=== PATIENT | female | born 1965 | race Two or more races ===

== ENCOUNTER 2018-06-16 12:39 | Emergency (ER) | payer BC, OTHER ==
[~2018-06-16] VITALS: Ht 149.9 cm; Wt 73.9 kg
[2018-06-16] MEDS ORDERED: LORazepam 0.5 MG TAB PO ONE (13:30)
[2018-06-16 13:43] LABS: Basophils # (auto) 0 uL; Basophils % (auto) 0.6 % (0.0-2.0); Eosinophils # (auto) 0.3 uL; Hemoglobin 14.2 g/dL (12.2-16.2); Lymphocytes # (auto) 1.9 uL; Lymphocytes % (auto) 33.3 % (10.0-50.0); Mean Corpuscular Hemoglobin 28.4 pg (28.0-32.0); Mean Corpuscular Hgb Conc. 32.3 g/dL (32.0-36.0); Monocytes # (auto) 0.4 uL; Monocytes % (auto) 7.6 % (0.0-12.0); Neutrophils # (auto) 3.1 uL; Neutrophils % (auto) 53.5 % (37.0-80.0); Nucleated Red Blood Cells % 0.1 %; Platelet Count (auto) 314 10^3/uL (140-450); Red Cell Distribution Width 14.7 % (11.8-14.3); White Blood Cell 5.7 10^3/uL (4.4-10.8)
[2018-06-16 14:06] LABS: Albumin 3.7 g/dL (3.4-5.0); BUN/Creatinine Ratio 18.3; Calcium 8.9 mg/dL (8.5-10.1); Potassium 3.5 mmol/L (3.5-5.1)
[2018-06-16 14:11] LABS: Bilirubin, Total 0.4 mg/dL (0.2-1.0); Total Protein 7.5 g/dL (6.4-8.2)
[2018-06-16 15:09] VITALS: BP 154/79
== END 2018-06-16 15:13 | disposition home or self-care (01) ==
LOC: ER 12:44
DX: F41.9 Anxiety disorder, unspecified (principal); R07.89 Other chest pain; I10 Essential (primary) hypertension; M19.90 Unspecified osteoarthritis, unspecified site
CPT/HCPCS: 36415; 71046; 80053; 84484; 85025; 93005

== ENCOUNTER 2019-05-15 15:17 | Emergency (ER) | payer BC ==
[~2019-05-15] VITALS: Ht 149.9 cm; Wt 72.6 kg
[2019-05-15 15:48] VITALS: BP 187/87
== END 2019-05-15 17:57 | disposition home or self-care (01) ==
LOC: ER 15:17
DX: T78.40XA Allergy, unspecified, initial encounter (principal); I10 Essential (primary) hypertension; Z90.710 Acquired absence of both cervix and uterus; Z90.49 Acquired absence of other specified parts of digestive tract; X58.XXXA Exposure to other specified factors, initial encounter
CPT/HCPCS: 70450

== ENCOUNTER 2024-11-25 17:52 | Emergency (ER) | payer BC ==
[~2024-11-25] VITALS: Ht 152.4 cm; Wt 77.4 kg
--- NOTE | 2024-11-25 18:06 | ECG ---
[facility] Test Date: 2024-11-25 Test Time: 18:05:41 Pat Name: BRAEDEN JACKSON Department: ER Room: Gender: F Pharmacy Associate: GP : 1965 Requested By: LEANDER MCMILLAN Order Number: [id number] Reading MD: Tristen Osman Measurements Intervals [place] Rate: 75 P: 78 CT: 147 QRS: 66 QRSD: 96 T: 202 QT: 417 QTc: 466 Interpretive Statements Sinus rhythm Nonspecific repol abnormality, diffuse leads Electronically Signed On 11-26-2024 20:56:29 PDT by Tristen Osman Please click the below link to view image of tracing.
--- NOTE | 2024-11-25 18:32 | ED.PDOC ---
Musculoskeletal HPI Comments 59 year old female presents to the ED with a chief complaint of RT hip pain s/p fall onset today. Patient came to [facility], visit family, went to the restroom, felt sharp pain on RT hip and fell down, landing on RT hip. She denies any dizziness, lightheadedness, chest pain or shortness of breath prior to the fall. She is currently experiencing RT hip pain and LT knee pain. PMHx HTN. Denies LOC, head injury, chest pain, shortness of breath, headache, dizziness, nausea, vomiting, diarrhea, abdominal pain. No other symptoms or modifying factors present at this time. Chief Complaint: Fall Injury Time Seen by MD: 18:20 Primary Care Provider: ADINA Salinas Notes: Medications, Allergies Allergies: Coded Allergies: NO KNOWN ALLERGIES (Unverified , 03/22/13) Home Meds Active Scripts Acetaminophen (Acetaminophen Er) 650 Mg Tab, 650 MG PO TIDBM for 5 Days, #15 TAB Prov:KORY RODRIGUEZ MD 11/25/24 Information Source: Patient Mode of Arrival: Ambulatory Location: Right Extremity Location: Hip Timing: Minutes Prehospital treatment: None Severity: Moderate Able to Move Extremity: Yes Bear Weight: Limited Pain: Moderate Mechanism: Spontaneous Circumstances: Fall Onset of Symptoms: Spontaneous Symptoms: Pain DVT Risk Factors: NONE Associated signs and symptoms: Knee pain, Hip pain Vital Signs Vital Signs Date Time Temp Pulse Resp B/P (MAP) Pulse Ox O2 Delivery O2 Flow Rate FiO2 11/26/24 01:20 60 10 187/91 (123) 99 11/26/24 00:29 Room Air* 0 21 11/26/24 00:28 97.9 97.9 Physical Exam General: Awake, alert and oriented. No acute distress. Skin: Skin in warm, dry and intact. Appropriate color for ethnicity. HEENT: The head is normocephalic and atraumatic. Conjunctivae are clear without exudates or hemorrhage. Sclera is non-icteric. EOM are intact. No signs of nystagmus. Eyelids are normal in appearance without swelling or lesions. Oral mucosa is pink and moist Neck: The neck is supple with normal range of motion. No JVD. Cardiac: Heart rate and rhythm are normal. No murmurs, gallops, or rubs are auscultated. Respiratory: No signs of respiratory distress. Lung sounds are clear in all lobes bilaterally without rales, rhonchi, or wheezes. Abdominal: Abdomen is soft, non-tender without distention. Bowel sounds are present and normoactive in all four quadrants. Extremities: Right hip tenderness, left knee, left elbow tenderness. No obvious deformity, laceration, edema, effusion. Good range of motion. Neurological: The patient is awake, alert and oriented to person, place, and time with normal speech. Speech is clear. There is no facial asymmetry. Patient is able to ambulate using her cane without difficulty. Psychiatric: Appropriate mood and affect. Good judgement and insight. Review of Systems: REVIEW OF SYSTEMS: No fever, no chills, or fatigue HEENT: No sore throat, no earache, no congestion, no neck pain. Cardiac: No chest pain. No palpitations. Lungs: No shortness of breath, no cough. GI: No nausea, no vomiting, no diarrhea, no constipation, no abdominal pain : No dysuria, frequency, or urgency. No hematuria. Musculoskeletal: Positive joint pain , no joint swelling, no extremity edema. Skin: No rash, no itching. 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 Was a procedure done?: No EKG EKG : Pulse Rate (adult): 147 [place]: Normal Cardiac Rhythm: NSR (75 bpm) Differential Diagnosis EXT Differential Diagnosis: Fracture, Sprain, Dislocation, Laceration, Contusion, Strain, Neurovascular injury, Other X-Ray, Labs, Meds, VS Vital Signs Date Time Temp Pulse Resp B/P (MAP) Pulse Ox O2 Delivery O2 Flow Rate FiO2 11/26/24 01:20 60 10 187/91 (123) 99 11/26/24 00:41 207/107 11/26/24 00:29 64 14 99 Room Air* 0 21 11/26/24 00:28 97.9 64 14 207/107 (140) 99 97.9 11/25/24 18:32 147 11/25/24 17:55 98.6 83 18 207/105 (139) 95 98.6 197/99 (131) Lab Test 11/25/24 18:12 Range/Units POC Glucose 96 70-106 mg/dl [address] [address] Ph: [phone] DIAGNOSTIC IMAGING Diagnostic Imaging Report : [id number] Signed PATIENT: BRAEDEN JACKSON ACCT: [id number] UNIT: [id number] : 1965 LOC: ER ROOM / BED: / AGE / SEX: 59 / F ADM STATUS: REG ER SERVICE 13 ORDERING PHYSICIAN: KORY RODRIGUEZ MD PROCEDURE(s): LELB3 - L ELBOW 3 VIEW XRAY REASON: Fall injury ORDER NUMBER(s): [id number], ACCESSION NUMBER(s): [id number] EXAM: XY L ELBOW 3 VIEW XRAY HISTORY: Fall injury COMPARISON: None TECHNIQUE: Three views of the left elbow were performed. FINDINGS: No acute fracture or effusion are identified about the left elbow. No significant degenerative changes. IMPRESSION: 1. No acute fracture of the left elbow. ATED BY: NOAH STOCK MD DICTATED DATE/TIME: 11/25/241852 SIGNED BY: NOAH STOCK MD SIGNED DATE/TIME: 11/25/241852 CC: [place] [address] Ph: [phone] DIAGNOSTIC IMAGING Diagnostic Imaging Report : [id number] Signed PATIENT: BRAEDEN JACKSON ACCT: [id number] UNIT: [id number] : 1965 LOC: ER ROOM / BED: / AGE / SEX: 59 / F ADM STATUS: REG ER SERVICE 13 ORDERING PHYSICIAN: KORY RODRIGUEZ MD PROCEDURE(s): RHIP - R HIP COMPLETE XRAY REASON: Fall injury ORDER NUMBER(s): [id number], ACCESSION NUMBER(s): [id number] EXAM: XY R HIP COMPLETE XRAY CLINICAL HISTORY: Fall injury COMPARISON: None TECHNIQUE: XY R HIP COMPLETE XRAY Findings/Impression: 2 views of the right hip with frontal view of the pelvis. There is no evidence of an acute fracture, dislocation, blastic, or lytic lesions. No radiopaque foreign bodies. No joint effusion or superficial soft tissue abnormalities. ATED BY: JAEL CRUZ DO DICTATED DATE/TIME: 11/25/241846 SIGNED BY: JAEL CRUZ DO SIGNED DATE/TIME: 11/25/241846 CC: [place] [address] Ph: [phone] DIAGNOSTIC IMAGING Diagnostic Imaging Report : [id number] Signed with Addenda PATIENT: BRAEDEN JACKSON ACCT: [id number] UNIT: [id number] : 1965 LOC: ER ROOM / BED: / AGE / SEX: 59 / F ADM STATUS: REG ER SERVICE 13 ORDERING PHYSICIAN: KORY RODRIGUEZ MD PROCEDURE(s): LKNE3 - L KNEE 3V XRAY REASON: Fall injury ORDER NUMBER(s): [id number], ACCESSION NUMBER(s): [id number] ADDENDUM ADDENDUM # 1 HS:Y ORIGINAL REPORT CLINICAL INDICATION: Fall injury TECHNIQUE: 3 radiographic views of the left knee were obtained. Comparison: None FINDINGS/IMPRESSION: There is no evidence of acute fracture or dislocation. Small calcification off the medial tibial spine and in the popliteal area on the lateral film. Can not exclude small avulsion injury The visualized joint space is well maintained. The alignment is anatomical. There is no radiopaque foreign body. ATED BY: GAIL KINGSTON Jr., DO DICTATED DATE/TIME: 11/25/241939 SIGNED BY: GAIL KINGSTON Jr., DO SIGNED DATE/TIME: 11/25/241939 CC: CLINICAL INDICATION: Fall injury TECHNIQUE: 3 radiographic views of the left knee were obtained. Comparison: None FINDINGS/IMPRESSION: There is no evidence of acute fracture or dislocation. Small calcification off the medial tibial spine and in the popliteal area on the lateral film. Can not exclude small avulsion injury The visualized joint space is well maintained. The alignment is anatomical. There is no radiopaque foreign body. ATED BY: GAIL KINGSTON Jr., DO DICTATED DATE/TIME: 11/25/241845 SIGNED BY: GAIL KINGSTON Jr., SIGNED DATE/TIME: 11/25/241845 CC: Time of 1ST Reevaluation: 18:50 Reevaluation 1ST: Unchanged Patient Education/Counseling: Diagnosis, Treatment, Prognosis Family Education/Counseling: No Family Present Departure 1 Departure Time of Disposition: 22:15 Impression: Primary Impression: Fall Additional Impression: Joint pain Disposition: 01 HOME / SELF CARE / HOMELESS Condition: Stable Additional Instructions: ED DISCHARGE INSTRUCTIONS Instructions: Please read all instructions provided in this packet carefully. Apply ice to achy joints as needed for pain. Although you have been discharged from the Emergency Department, this does not mean that you have a "clean bill of health". No definitive diagnosis for your symptoms has been made today. It is possible that you are in the process of developing a serious illness. This is why you must return to the ED without fail if any new or worsening symptoms (especially if your symptoms include chest pain, trouble breathing, abdominal pain, fever, headache, confusion, trouble seeing, or trouble walking) It is also very important that you see a primary care doctor within the next 3-5 days to follow up. If you are unable to get an appointment, return to the ED for re-evaluation. Joint Pain: Care Instructions Table of Contents Overview How can you care for yourself at home? When should you call for help? Credits Overview Many people have minor aches and pains from overuse or injury to muscles and joints. Joint injuries often happen during sports or recreation, work tasks, or projects around the home. An overuse injury can happen when you put too much stress on a joint or when you do an activity that stresses the joint over and over, such as using the computer or rowing a boat. You can take action at home to help your muscles and joints get better. You should feel better in 1 to 2 weeks, but it can take 3 months or more to heal completely. Follow-up care is a ford part of your treatment and safety. Be sure to make and go to all appointments, and call your doctor if you are having problems. It's also a good idea to know your test results and keep a list of the medicines you take. How can you care for yourself at home? Do not put weight on the injured joint for at least a day or two. Wrap the injury in an elastic bandage. Do not wrap it too tightly because this can cause more swelling. Put ice or a cold pack on the sore joint for 10 to 20 minutes at a time. Try to do this every 1 to 2 hours for the next 3 days (when you are awake). Put a thin cloth between the ice and your skin. Prop up the sore joint on a pillow when you ice it or anytime you sit or lie down during the next 3 days. Try to keep it above the level of your heart. This will help reduce swelling. After 2 or 3 days, you can try applying heat to the area that hurts. Apply heat for 10 to 20 minutes at a time, several times a day. Types of heat therapy include microwavable packs and disposable heating patches. You might also try switching between ice and heat. Ask your doctor if you can take an dopr-bra-xaqryec pain medicine, such as acetaminophen (Tylenol), ibuprofen (Advil, Motrin), or naproxen (Aleve). Be safe with medicines. Read and follow all instructions on the label. Do not take two or more pain medicines at the same time unless the doctor told you to. Many pain medicines have acetaminophen, which is Tylenol. Too much acetaminophen (Tylenol) can be harmful. After 1 or 2 days of rest, begin moving the joint gently. While the joint is still healing, you can begin to exercise using activities that do not strain or hurt the painful joint. When should you call for help? Call your doctor now or seek immediate medical care if: You have signs of infection, such as: Increased pain, swelling, warmth, and redness. Red streaks leading from the joint. A fever. Watch closely for changes in your health, and be sure to contact your doctor if: Your movement or symptoms are not getting better after 1 to 2 weeks of home treatment. Credits for Joint Pain: Care Instructions Current as of: March 18, 2024 Author: [employer] Staff Clinical Review Board All [employer] education is reviewed by a team that includes physicians, nurses, advanced practitioners, registered dieticians, and other healthcare professionals. e-Prescriptions Acetaminophen (Acetaminophen Er) 650 Mg Tab 650 MG PO TIDBM for 5 Days, #15 TAB Prov: KORY RODRIGUEZ MD 11/25/24 Comments 59-year-old female who presents to the emergency department with mechanical fall injury. There was no head injury. She reported right hip, left elbow/left knee pain. There was no obvious deformity on exam. Imaging negative for acute fracture. Patient informed of abnormal CT right knee finding. Patient states she feels comfortable ambulating with her walker and wants to be discharged home with her daughter. Patient advised to follow up with primary care provider for re-evaluation within a few days and advised supportive care at home. Extensive evaluation was performed in attempt to identify or rule out: (See differential diagnosis section) The following tests were ordered, and results were reviewed by me and discussed with patient: (See diagnostic results section) The following test were independently interpreted by me: N/A I reviewed and agreed with the following test results read by other providers: N/A I reviewed the following notes from the pt's past medical encounters: N/A Additional information was gathered from interviewing the following independent historians: Patient's daughter at bedside Discussion of management or test interpretation with external physician/other qualified health memory care program director: N/A Decision regarding hospitalization or escalation of hospital level of care: Risks and benefits of admission for further treatment of patient's condition was considered however due to patient's stable condition patient will be discharged to follow up closely or return to care for worsening of condition or inability to follow up. Discussed with the patient Critical Care Note Critical Care Time?: No Stability Stability form required: No I personally scribed for KORY RODRIGUEZ MD ([email or web address]) on 11/25/24 at 18:32. Electronically submitted by Clarisse Camejo ([email or web address]). I personally scribed for KORY RODRIGUEZ MD ([email or web address]) on 11/25/24 at 20:11. Electronically submitted by Clarisse Camejo ([email or web address]). KORY RODRIGUEZ MD Nov 25, 2024 18:32
--- NOTE | 2024-11-25 18:48 | DVH ---
CLINICAL INDICATION: Fall injury TECHNIQUE: 3 radiographic views of the left knee were obtained. Comparison: None FINDINGS/IMPRESSION: There is no evidence of acute fracture or dislocation. Small calcification off the medial tibial spine and in the popliteal area on the lateral film. Can no t exclude small avulsion injury The visualized joint space is well maintained. The alignment is anatomical. There is no radiopaque foreign body.
--- NOTE | 2024-11-25 18:49 | DVH ---
EXAM: XY R HIP COMPLETE XRAY CLINICAL HISTORY: Fall injury COMPARISON: None TECHNIQUE: XY R HIP COMPLETE XRAY Findings/Impression: 2 views of the right hip with frontal view of the pelvis. There is no evidence of an acute fracture, dislocation, blastic, or lytic lesions. No radiopaque foreign bodies. No joint effusion or superficial soft tissue abnormalities.
--- NOTE | 2024-11-25 18:56 | DVH ---
EXAM: XY L ELBOW 3 VIEW XRAY HISTORY: Fall injury COMPARISON: None TECHNIQUE: Three views of the left elbow were performed. FINDINGS: No acute fracture or effusion are identified about the left elbow. No significant degenerative change s. IMPRESSION: 1. No acute fracture of the left elbow.
--- NOTE | 2024-11-25 21:12 | DVH ---
EXAM: CT CT L KNEE WO CONTRAST HISTORY: Rule out fracture/avulsion injury COMPARISON: None TECHNIQUE: Noncontrast axial CT images of the left knee were performed. Sagittal and coronal reformat mirta images were obtained. This CT exam was performed using one or more of the following dose reductio n techniques: Automated exposure control, adjustment of the mA and/or kv according to patient size, o r the use of iterative reconstruction techniques. Radiation Dose Information: CTDI volume is 8.05 mGy . Dose-length product is 224.96 mGy*cm FINDINGS: Normal mineralization and alignment. Joint spaces are preserved. Tiny well corticated osseous densit y projects adjacent to the medial tibial spine. Otherwise no acute osseous abnormality. Soft tissue s welling anterior to the patellar tendon. The ligaments and tendons are grossly normal although not op timally evaluated by CT. The Muscle bundles about the left knee are intact. IMPRESSION: 1. Tiny well corticated osseous density adjacent to the medial tibial spine which may be sequelae of remote trauma 2. Otherwise no acute osseous abnormality. 3. Mild subcutaneous swelling anterior to the patellar tendon.
[2024-11-25] MEDS ORDERED: ACET650T12 PO (22:41)
[2024-11-26 00:28] VITALS: TEMP 97.9
[2024-11-26 00:29] VITALS: PULSE 64; RESP 14; O2SAT 99
[2024-11-26] MEDS: cloNIDine HCL 0.1 MG TAB PO ONE (00:41)
[2024-11-26] MEDS: traMADol HCL 50 MG TAB PO ONE (00:41)
[2024-11-26] MEDS: ACETAMINOPHEN 500 MG TAB or CAP PO ONE (00:42)
[2024-11-26 01:20] VITALS: BP 187/91; PULSE 60; RESP 10; O2SAT 99
== END 2024-11-26 01:22 | disposition home or self-care (01) ==
LOC: ER 17:52
DX: M25.551 Pain in right hip (principal); I10 Essential (primary) hypertension; F41.9 Anxiety disorder, unspecified; Z90.49 Acquired absence of other specified parts of digestive tract; Z90.710 Acquired absence of both cervix and uterus; Z79.899 Other long term (current) drug therapy; W18.39XA Other fall on same level, initial encounter; Y93.89 Activity, other specified; Y92.89 Other specified places as the place of occurrence of the external cause; Y99.8 Other external cause status
CPT/HCPCS: 73080; 73502; 73562; 73700; 82947; 82962; 93005